=== PATIENT | male | born 1955 | race Caucasian/White ===

== ENCOUNTER 2016-12-18 11:11 | Observation (INO) | payer MEDICARE, OTHER ==
[2016-12-18] MEDS ORDERED: METOCLOPRAMIDE HCL 5 MG/ML VIAL IV ONE (11:44)
[2016-12-18] MEDS ORDERED: diphenhydrAMINE HCL 50 MG/ML VIAL IV ONE (11:44)
[2016-12-18] MEDS ORDERED: diphenhydrAMINE HCL 50 MG/ML VIAL ONE (11:51)
[2016-12-18] MEDS ORDERED: METOCLOPRAMIDE HCL 5 MG/ML VIAL ONE (11:51)
--- NOTE | 2016-12-18 11:54 | ERNOTE ---
Dyspnea - General Presenting Symptoms: shortness of breath, other - right-sided chest pain Time Seen by Provider: 12/18/16 11:14 Source: patient, family Exam Limitations: no limitations - Immun/Allergies/Home Medications Allergies/Adverse Reactions: Allergies No Known Allergies Allergy (Verified 12/18/16 11:25) Home Medications: HOME MEDICATIONS Bumetanide 2 mg PO BID 08/15/13 [Last Taken Unknown] Albuterol Sulfate [Proair Respiclick] 90 mcg IH PRN PRN 12/18/16 [Last Taken Unknown] Apixaban [Eliquis] 5 mg PO BID 12/18/16 [Last Taken Unknown] Atorvastatin Calcium 10 mg PO DAILY 12/18/16 [Last Taken Unknown] Levothyroxine Sodium [Levoxyl] 25 mcg PO DAILY 12/18/16 [Last Taken Unknown] Lisinopril [Prinivil] 10 mg PO DAILY 12/18/16 [Last Taken Unknown] Spironolactone 50 mg PO BID 12/18/16 [Last Taken Unknown] metFORMIN HCL [Fortamet] 500 mg PO BID 12/18/16 [Last Taken Unknown] - History of Present Illness Narrative: Patient presents with a variety of problems including right flank tenderness, right upper quadrant tenderness and epigastric discomfort. He states his problems of an ongoing for perhaps a month and this up and not getting better. He rates the pain and difficulty has being at least moderate in severity. He is not able to qualify exactly what the nature of the discomfort is however. 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 Frequency of episodes: Reports: occassional episodes Associated Symptoms-Dyspnea: Reports: chest pain/discomfort Prior Treatment: Reports: recently seen, treated by physician Review of Systems - Review of Systems Constitutional: Present: See HPI EYE: Present: no symptoms reported ENT: Present: no symptoms reported Respiratory: Present: no symptoms reported Cardiology: Present: chest pain Gastrointestinal/Abdominal: Present: abdominal pain Genitourinary: Present: other - right flank tenderness Musculoskeletal: Present: no symptoms reported Skin: Present: no symptoms reported Neurological: Present: no symptoms reported Endocrine: Present: no symptoms reported Hematologic/Lymphatic: Present: no symptoms reported Psych: Present: no symptoms reported - Patient's Past Medical History Patient History - Medical: Diabetes Type 2, GERD Patient History - Cardiac/Respiratory: Atrial Fibrillation, CHF, Hypertension, Hyperlipidemia, Sleep Apnea Patient History - Cancer: No Hx of Cancer Patient History - Other: None - Social History Living Situations: home Alcohol Use: none Drug Use: none Physical Exam - Physical Exam General Appearance: Present: wd/wn, alert, moderate distress, other - profound morbid obesity Head Exam: Present: normal inspection Eye Exam: Normal inspection: bilateral, PERRL: bilateral Ears, Nose, Throat: Present: normal pharynx, dry mucous membranes Neck: Present: normal inspection, nontender Respiratory: Present: no respiratory distress, normal breath sounds, no accessory muscle use, lungs clear, chest tenderness - right lateral lower Cardiovascular/Chest: Present: regular rate, rhythm, no murmur, normal peripheral pulses Gastrointestinal/Abdominal: Present: normal bowel sounds, nondistended, soft, no organomegaly, tenderness - in the epigastric region Rectal Exam: Present: deferred Back Exam: Present: normal range of motion, CVA tenderness (R) Extremity Exam: Present: normal inspection, non-tender, no edema, normal range of motion Neurological Exam: Present: alert, oriented, normal mood/affect Skin Exam: Present: normal color, warm/dry Lymphatic Exam: Present: no adenopathy ED Progress - Results and Orders Patient's Lab Results:: I have reviewed the patient's lab results. - Vital Signs Patient's Vital Signs:: I have reviewed the patient's vital signs. Vital Signs: Vital Signs 12/18/16 11:20 Temperature 36.3 C L Pulse Rate 92 Respiratory 12 Rate Blood Pressure 140/60 O2 Sat by Pulse 94 Oximetry - X-Ray X-Ray #1 X-Ray: chest Interpretation: Reviewed by me X-Ray #2 X-Ray: abdomen Interpretation: Reviewed by me - Progress/Reassessment Chief Complaint: Dyspnea Plan - Plan Plan: The patient will need to be admitted to the hospital for correction of Saturday of problems. He is profoundly hyperglycemic, and while he is not in DKA is certainly is trending toward pretty marked dehydration with his lactic acid being 5.4. I believe the lactic acidosis is more from dehydration and do not see any source for any infection present anywhere and I also suspect that this is also part and parcel with the hyponatremia as well. I suspect the patient may require 3-4 L of fluid given his profound morbid obesity. Patient will be admitted to the floor on an insulin drip. I suspect the abdominal pain was coming from a diabetic gastroparesis as the abdominal pain got better on Reglan and Benadryl. Departure Clinical Impression: Hyperglycemia, Hyponatremia, Dehydration, Lactic acid acidosis, Gastroparesis due to DM - Departure Disposition: [facility] Condition: Fair Referrals: Mayra Michelle MD [Primary Care Provider] - - Critical Care Total Time (mins): 45 Critical Care: Patient required a variety of interventions here in the emergency department, including IV fluid bolus and IV insulin. I suspect the patient is easy 3-4 L behind in fluid and we will start him on insulin drip always on the floor.
[2016-12-18 12:04] LABS: Hematocrit 44.3 % (42.0-52.0); Hemoglobin 15.4 gm/dL (13.5-18.0); Mean Cell Volume 87.7 fl (78-100); Mean Corpuscular Hemoglobin 30.5 pg (27-31); Mean Corpuscular Hgb Conc 34.8 g/dl (32-36); Mean Platelet Volume 10.6 fl (6.0-9.5); Neutrophil # 8.9 K/mm3 (1.3-6.0); Neutrophil % 74.1 % (42-75.0); Platelet Count 305 K/mm3 (150-450); Red Blood Count 5.05 M/mm3 (4.7-6.0); Red Cell Distribution Width 12.1 % (11.5-14.0)
[2016-12-18 12:16] LABS: Urine Appearance Clear; Urine Bacteria None Seen; Urine Bilirubin Negative (NEGATIVE); Urine Blood Negative /ul (NEGATIVE); Urine Color Yellow; Urine Ketone Negative (NEGATIVE); Urine Nitrite Negative (NEGATIVE); Urine Protein Negative (NEGATIVE); Urine RBC None Seen /hpf (0-5); Urine Specific Gravity <=1.005 SP.GR. (1.005-1.030); Urine Urobilinogen Normal (NORMAL); Urine WBC None Seen /hpf (0-5); Urine pH 5.5 pH (5.0-7.0)
[2016-12-18] MEDS ORDERED: NORMAL SALINE 1,000 ML IV ONE ×2 (12:24→14:32)
[2016-12-18] MEDS ORDERED: INSULIN REGULAR, HUMAN 100 UNITS/ML VIAL IV ONE (12:48)
[2016-12-18 12:49] LABS: Albumin * 3.6 gm/dl (3.4-5.0); Anion Gap 21.2 mmol/L (6.8-13.8); BUN/Creatinine Ratio 10.5 (9.0-21.6); Bilirubin, Total 0.8 mg/dL (0.0-1.1); Blood Urea Nitrogen 18 mg/dL (6-23); Ca. Corrected For Albumin 9.1 mg/dL (8.4-10.2); Calcium * 9.1 mg/dL (7.9-10.9); Carbon Dioxide 19.3 mmol/L (24-32.6); Chloride 85 mmol/L (97-106); Glucose * 741 mg/dL (70-110); Potassium 4.5 mmol/L (3.4-4.6); Sodium 121 mmol/L (132-142); Total Protein 8.5 gm/dL (6.2-8.2)
[2016-12-18 12:50] LABS: ALT 99 U/L (19-67); AST 122 U/L (0-48); Alkaline Phosphatase * 278 U/L (50-170); Lipase 204 U/L (73-393); Magnesium 2.1 mg/dL (1.2-2.8)
[2016-12-18] MEDS ORDERED: INSULIN REGULAR, HUMAN 100 UNITS/ML VIAL ONE (13:00)
[2016-12-18 14:56] LABS: Albumin * 3.3 gm/dl (3.4-5.0); Anion Gap 15.9 mmol/L (6.8-13.8); BUN/Creatinine Ratio 9.5 (9.0-21.6); Bilirubin, Total 0.8 mg/dL (0.0-1.1); Ca. Corrected For Albumin 8.8 mg/dL (8.4-10.2); Calcium * 8.6 mg/dL (7.9-10.9); Magnesium 1.9 mg/dL (1.2-2.8); Phosphorus 2.9 mg/dL (2.2-4.2); Potassium 3.9 mmol/L (3.4-4.6); Total Protein 7.7 gm/dL (6.2-8.2)
[2016-12-18] MEDS ORDERED: HEPARIN SODIUM,PORCINE 5,000 UNITS/ML VIAL SC SCH (15:00)
[2016-12-18] MEDS: INSULIN REGULAR HUMAN REC 100 UNITS in NORMAL SALINE 100 ML IV PRN ×5 (15:15→18:31)
[2016-12-18] MEDS ORDERED: NORMAL SALINE IV SCH (16:00)
[2016-12-18] MEDS ORDERED: POTASSIUM CHLORIDE IV SCH (16:00)
[2016-12-18] MEDS ORDERED: ALBUTEROL SULFATE 2.5 MG/0.5 ML VIAL.NEB IH PRN (16:26)
--- NOTE | 2016-12-18 16:30 | HP ---
Chief Complaint - Chief Complaint Date of Service: 12/18/16 Time of Service: 16:28 Chief Complaint: malaise, fatigue, elevated blood sugar, shortness of breath History of Present Illness: Keith is a 61 year old male patient of Dr. Michelle with a PMH of PAF (on eliquis), RODRIGO (requiring tracheostomy with O2 bleed in), DM T2 (non-insulin dependent), morbid obesity (BMI 52), HTN, HLD, Diastolic CHF, GERD, chronic hep C and mild AI who presented to the ER today with c/o cp, dyspnea and diffuse abdominal pain. abdominal xray c/w stool retention. chest xray showed no acute cardiopulmonary abnormalities. cbc notable for elevated wbc at 12.0. UA positive for >1000 glucose. serum ketones negative. Na+ 121, creatinine 1.72, serum glucose 741, AST 122, ALT 99, Alk Phos 278, lactic acid 5.4, troponin 0.018. Patient to be admitted for nonketotic hyperglycemia, dehydration, and hyponatremia. - Patient's Past Medical History Patient History - Medical: Anxiety, Diabetes Type 2, Depression, GERD, Liver Disease, Obesity Patient History - Cardiac/Respiratory: Atrial Fibrillation, CHF, Hypertension, Hyperlipidemia, Home O2 Use, Sleep Apnea Patient History - Cancer: No Hx of Cancer Patient History - Surgical Procedures: ENT Patient History - Other: Other - Family History Mother Family History - Medical: , Arthritis, Diabetes Type 2 Family History - Cardiac/Respiratory: CVA/Stroke Father Family History - Medical: , Arthritis, Glaucoma Family History - Cardiac/Respiratory: Coronary Heart Disease, Hypertension, Myocardial Infarction Family History - Cancer: Prostate Brother Family History - Medical: Other Sister Family History - Cancer: Breast, Melanoma Uncle Family History - Cancer: Lung - Social History Living Situations: home Abuse History: No History of abuse Psych History: Hx of Anxiety Smoking Status: Former smoker Have you smoked in the past 12 months: No Do you dip or chew tobacco: No Patient requests Smoking Cessation Consult: No Initiate information on Smoking Cessation: No Alcohol Use: sober Drug Use: none Review Of Systems (GEN) - Review of Systems Generalized/Overall Review: Present: Weakness, Malaise, Fatigue. Absent: Chills , Fever EENTM: Present: No Symptoms Reported Respiratory: Present: Shortness of Breath. Absent: Cough, Wheezing Cardiac: Present: Chest Pain. Absent: Palpitations, Syncope Abdominal: Present: Abdominal Pain. Absent: Vomiting, Hematemesis, Diarrhea Genitourinary: Present: Frequency. Absent: Burning Musculoskeletal: Present: No Symptoms Reported Neurological: Present: No Symptoms Reported Skin: Present: No Symptoms Reported Endocrine: Present: No Symptoms Reported Misc: All systems neg except as marked Allergies/Adverse Reactions: Allergies Allergy/AdvReac Type Severity Reaction Status Date / Time rivaroxaban [From Xarelto] AdvReac Severe Other Verified 12/18/16 14:33 Home Medications: HOME MEDICATIONS Bumetanide 2 mg PO BID 08/15/13 [Last Taken 12/18/16] Albuterol Sulfate [Proair Respiclick] 2 puff IH Q4H PRN 12/18/16 [Last Taken ] Apixaban [Eliquis] 5 mg PO BID 12/18/16 [Last Taken 12/18/16] Atorvastatin Calcium 10 mg PO HS 12/18/16 [Last Taken 12/17/16] Levothyroxine Sodium [Levoxyl] 25 mcg PO DAILY 12/18/16 [Last Taken 12/18/16] Lisinopril [Prinivil] 10 mg PO HS 12/18/16 [Last Taken 12/17/16] Spironolactone 50 mg PO BID 12/18/16 [Last Taken 12/18/16] metFORMIN HCL [Fortamet] 500 mg PO 1700 12/18/16 [Last Taken 12/17/16] Exam - Exam Vital Signs: Vital Signs - Last Taken Temp 37 C 12/18/16 14:48 Pulse 83 12/18/16 14:58 Resp 20 12/18/16 14:48 BP 102/50 12/18/16 14:48 Pulse Ox 98 12/18/16 14:48 Constitutional: Present: Alert, Cooperative, No distress, Morbidly obese, Looks Older than stated age ENT Exam: Present: hearing grossly normal Eye Exam: bilateral eye: normal inspection Neck: Present: supple, other - short, thick neck. trach in place. Breasts: Present: Exam deferred Respiratory: Present: normal breath sounds, no respiratory distress Cardiovascular/Chest: Present: normal peripheral pulses, irregularly irregular. Absent: tachycardia Peripheral Pulses: dorsalis-pedis (R): 2+, dorsalis-pedis (L): 2+, radial (R): 2 +, radial (L): 2+ Abdomen: Present: soft, nontender, obese /Rectal: Present: Exam deferred Extremity: Present: non-tender, no calf tenderness Skin Exam: Present: normal color, warm/dry, no cyanosis Appearance: Present: disheveled Diagnostic Studies: Abnormal Lab Results 12/18/16 12/18/16 12/18/16 Range/Units 14:27 14:27 Unknown Sodium 125 L (132-142) mmol/L Chloride 88 L (97-106) mmol/L Anion Gap 15.9 H (6.8-13.8) mmol/L Creatinine 1.79 H (0.4-1.4) mg/dL Est GFR (Non-Af Amer) 41 L (60-130) mL/min Random Glucose 557 H* (70-110) mg/dL Lactic Acid, Venous 4.3 H* (0.4-1.9) mmol/L AST 87 H (0-48) U/L ALT 89 H (19-67) U/L Alkaline Phosphatase 243 H (50-170) U/L B-Natriuretic Peptide 1060 H (5-175) pg/mL Albumin 3.3 L (3.4-5.0) gm/dl Urine Glucose (UA) >=1000 H (NEGATIVE) mg/dL Laboratory Results WBC 12.0 K/mm3 (4.0-10.5) H 12/18/16 11:55 RBC 5.05 M/mm3 (4.7-6.0) 12/18/16 11:55 Hgb 15.4 gm/dL (13.5-18.0) 12/18/16 11:55 Hct 44.3 % (42.0-52.0) 12/18/16 11:55 MCV 87.7 fl (78-100) 12/18/16 11:55 MCH 30.5 pg (27-31) 12/18/16 11:55 MCHC 34.8 g/dl (32-36) 12/18/16 11:55 RDW 12.1 % (11.5-14.0) 12/18/16 11:55 Plt Count 305 K/mm3 (150-450) 12/18/16 11:55 MPV 10.6 fl (6.0-9.5) H 12/18/16 11:55 Immature Gran % (Auto) 0.80 % (0.001-0.429) H 12/18/16 11:55 Immature Gran # (Auto) 0.10 K/mm3 (0.000-0.0310) H 12/18/16 11:55 Neutrophils % 74.1 % (42-75.0) 12/18/16 11:55 Lymphocytes % 13.1 % (20-51) L 12/18/16 11:55 Monocytes % 10.2 % (0.0-9) H 12/18/16 11:55 Eosinophils % 1.4 % (0.0-3.0) 12/18/16 11:55 Basophils % 0.4 % (0.0-1.0) 12/18/16 11:55 Nucleated RBC % 0.0 k/mm3 (0-1) 12/18/16 11:55 Neutrophils # 8.9 K/mm3 (1.3-6.0) H 12/18/16 11:55 Lymphocytes # 1.6 k/mm3 (1.5-3.5) 12/18/16 11:55 Monocytes # 1.2 k/mm3 (0.0-1.0) H 12/18/16 11:55 Eosinophils # 0.2 k/mm3 (0.0-0.7) 12/18/16 11:55 Absolute Basophils 0.1 k/mm3 (0.0-0.1) 12/18/16 11:55 Sodium 125 mmol/L (132-142) L 12/18/16 14:27 Plasma Sodium 132 mmol/L (130-142) 12/18/16 14:27 Potassium 3.9 mmol/L (3.4-4.6) 12/18/16 14:27 Chloride 88 mmol/L (97-106) L 12/18/16 14:27 Carbon Dioxide 25.0 mmol/L (24-32.6) 12/18/16 14:27 Anion Gap 15.9 mmol/L (6.8-13.8) H 12/18/16 14:27 BUN 17 mg/dL (6-23) 12/18/16 14:27 Creatinine 1.79 mg/dL (0.4-1.4) H 12/18/16 14:27 Est GFR (Non-Af Amer) 41 mL/min (60-130) L 12/18/16 14:27 BUN/Creatinine Ratio 9.5 (9.0-21.6) 12/18/16 14:27 Random Glucose 557 mg/dL (70-110) H* 12/18/16 14:27 Lactic Acid, Venous 4.3 mmol/L (0.4-1.9) H* 12/18/16 14:27 Calcium 8.6 mg/dL (7.9-10.9) 12/18/16 14:27 Calcium Adj for Albumin 8.8 mg/dL (8.4-10.2) 12/18/16 14:27 Phosphorus 2.9 mg/dL (2.2-4.2) 12/18/16 14:27 Magnesium 1.9 mg/dL (1.2-2.8) 12/18/16 14:27 Total Bilirubin 0.8 mg/dL (0.0-1.1) 12/18/16 14:27 AST 87 U/L (0-48) H 12/18/16 14:27 ALT 89 U/L (19-67) H 12/18/16 14:27 Alkaline Phosphatase 243 U/L (50-170) H 12/18/16 14:27 Troponin I 0.018 ng/ml (0.00-0.10) 12/18/16 11:55 B-Natriuretic Peptide 1060 pg/mL (5-175) H 12/18/16 14:27 Total Protein 7.7 gm/dL (6.2-8.2) 12/18/16 14:27 Albumin 3.3 gm/dl (3.4-5.0) L 12/18/16 14:27 Lipase 204 U/L (73-393) 12/18/16 11:55 Urine Color Yellow 12/18/16 Unknown Urine Appearance Clear 12/18/16 Unknown Urine pH 5.5 pH (5.0-7.0) 12/18/16 Unknown Ur Specific Pinson <=1.005 SP.GR. (1.005-1.030) 12/18/16 Unknown Urine Protein Negative mg/dL (NEGATIVE) 12/18/16 Unknown Urine Glucose (UA) >=1000 mg/dL (NEGATIVE) H 12/18/16 Unknown Urine Ketones Negative mg/dL (NEGATIVE) 12/18/16 Unknown Urine Blood Negative /ul (NEGATIVE) 12/18/16 Unknown Urine Nitrate Negative (NEGATIVE) 12/18/16 Unknown Urine Bilirubin Negative mg/dl (NEGATIVE) 12/18/16 Unknown Urine Urobilinogen Normal EU/dl (NORMAL) 12/18/16 Unknown Ur Leukocyte Esterase Negative /ul (NEGATIVE) 12/18/16 Unknown Urine RBC None seen /hpf (0-5) 12/18/16 Unknown Urine WBC None seen /hpf (0-5) 12/18/16 Unknown Ur Epithelial Cells 0-5 /hpf (0-5) 12/18/16 Unknown Urine Bacteria None seen (NONE) 12/18/16 Unknown Urine Culture Comments No culture indicated 12/18/16 Unknown Serum Ketones Negative (NEGATIVE) 12/18/16 11:55 Assessment/Plan - Narrative Narrative: Diabetic hyperglycemia without ketosis - recheck CMP stat and as needed - aggressive IV hydration - patient is at least 4 liters behind - replace electrolytes as needed - watch K+ closely - check phos, Mg - start insulin gtt at 4 units and adjust per blood sugar response - transition to lantus insulin when bicarb normalizes - keep NPO for now. - strict I&Os - daily weights lactic acid acidosis - likely due to dehydration, no source of infection found. - improving with iv fluid hydration. - recheck tonight. dehydration - aggressive iv hydration. hyponatremia - likely due to marked hyperglycemia. - should improve as blood sugar improve. - recheck labs tonight and in am. Atrial fibrillation - cont eliquis - monitor on tele - heart rate controlled. HTN - vital signs q 4 hours. chronic diastolic CHF - daily weights - strict I&Os. RODRIGO, requiring trach with chronic O2 bleed in - cont trach care, O2 while in hospital. Code status: full code VTE: hany GI proph: protnoix po. - Assessment/Plan (1) Lactic acid acidosis Problem: Acute (2) Hyponatremia Problem: Acute (3) Dehydration Problem: Acute (4) Hyperglycemia without ketosis Problem: Acute (5) Diabetes Problem: Chronic Qualifiers: Diabetes mellitus type: type 2 Diabetes mellitus complication status: with hyperglycemia Diabetes mellitus fci insulin use: without fci use Qualified Code(s): E11.65 - Type 2 diabetes mellitus with hyperglycemia (6) PAF (paroxysmal atrial fibrillation) Problem: Chronic (7) Morbid obesity Problem: Chronic (8) HTN (hypertension) Problem: Chronic Qualifiers: Hypertension type: essential hypertension Qualified Code(s): I10 - Essential (primary) hypertension (9) HLD (hyperlipidemia) Problem: Chronic Qualifiers: Hyperlipidemia type: unspecified Qualified Code(s): E78.5 - Hyperlipidemia , unspecified (10) CHF (congestive heart failure) Problem: Chronic Qualifiers: Congestive heart failure type: diastolic Congestive heart failure chronicity: chronic Qualified Code(s): I50.32 - Chronic diastolic (congestive ) heart failure (11) GERD (gastroesophageal reflux disease) Problem: Chronic Qualifiers: Esophagitis presence: esophagitis presence not specified Qualified Code(s) : K21.9 - Gastro-esophageal reflux disease without esophagitis (12) RODRIGO treated with BiPAP Problem: Chronic
[2016-12-18 17:06] LABS: Cocaine Ur Negative (NEGATIVE); Urine Barbiturate Negative (NEGATIVE); Urine Benzodiazepines Negative (NEGATIVE); Urine Opiates Negative (NEGATIVE); Urine PCP Negative (NEGATIVE); Urine THC Negative (NEGATIVE)
[2016-12-18] MEDS ORDERED: INSULIN GLARGINE,HUM.REC.ANLOG 100 UNITS/ML VIAL SC SCH (17:15)
[2016-12-18 18:56] LABS: Albumin * 2.9 gm/dl (3.4-5.0); Anion Gap 14.7 mmol/L (6.8-13.8); BUN/Creatinine Ratio 12.3 (9.0-21.6); Bilirubin, Total 0.6 mg/dL (0.0-1.1); Calcium * 8.4 mg/dL (7.9-10.9); Potassium 4.7 mmol/L (3.4-4.6); Total Protein 6.8 gm/dL (6.2-8.2)
[2016-12-18] MEDS ORDERED: NORMAL SALINE 1,000 ML IV PRN (19:07)
[2016-12-18] MEDS ORDERED: INSULIN LISPRO 100 UNITS/ML VIAL SC SCH ×2 (20:45→23:45)
[2016-12-18] MEDS: APIXABAN 2.5 MG TABLET PO SCH (20:52)
[2016-12-18] MEDS ORDERED: LISINOPRIL 10 MG TABLET PO SCH (21:00)
[2016-12-18] MEDS ORDERED: SPIRONOLACTONE 50 MG PO SCH (21:00)
[2016-12-18] MEDS: DEXTROSE 5%-NORMAL SALINE 1,000 ML IV PRN (22:40)
[2016-12-18 23:20] LABS: Albumin * 2.8 gm/dl (3.4-5.0); BUN/Creatinine Ratio 14.4 (9.0-21.6); Bilirubin, Total 0.6 mg/dL (0.0-1.1); Ca. Corrected For Albumin 9.1 mg/dL (8.4-10.2); Calcium * 8.5 mg/dL (7.9-10.9); Total Protein 6.7 gm/dL (6.2-8.2)
[2016-12-18 23:27] LABS: Anion Gap 16.1 mmol/L (6.8-13.8); Carbon Dioxide 23.9 mmol/L (24-32.6)
[2016-12-19 05:40] LABS: Hematocrit 37.3 % (42.0-52.0); Mean Cell Volume 88.8 fl (78-100); Mean Corpuscular Hgb Conc 34.9 g/dl (32-36); Mean Platelet Volume 10.3 fl (6.0-9.5); Neutrophil # 7.2 K/mm3 (1.3-6.0); Neutrophil % 66.3 % (42-75.0); Platelet Count 251 K/mm3 (150-450); Red Cell Distribution Width 12.1 % (11.5-14.0); White Blood Count 10.9 K/mm3 (4.0-10.5)
[2016-12-19 06:02] LABS: Anion Gap 11.2 mmol/L (6.8-13.8); BUN/Creatinine Ratio 14.4 (9.0-21.6); Calcium * 8.6 mg/dL (7.9-10.9); Carbon Dioxide 27.8 mmol/L (24-32.6); Estimated Creat Clear 84.5
[2016-12-19] MEDS: DEXTROSE 5%-NORMAL SALINE 1,000 ML IV PRN (06:47)
[2016-12-19] MEDS ORDERED: LEVOTHYROXINE SODIUM 25 MCG TABLET PO SCH (07:00)
[2016-12-19] MEDS: INSULIN ASPART 100 UNITS/ML VIAL SC SCH ×2 (07:35→11:56)
[2016-12-19] MEDS: APIXABAN 2.5 MG TABLET PO SCH (08:36)
[2016-12-19 10:56] VITALS: BP 102/48
--- NOTE | 2016-12-19 11:06 | DS ---
(1) Lactic acid acidosis Problem: Acute (2) Hyponatremia Problem: Acute (3) Dehydration Problem: Acute (4) Hyperglycemia without ketosis Problem: Acute (5) Diabetes Problem: Chronic Qualifiers: Diabetes mellitus type: type 2 Diabetes mellitus complication status: with hyperglycemia Diabetes mellitus detention insulin use: without detention use Qualified Code(s): E11.65 - Type 2 diabetes mellitus with hyperglycemia (6) PAF (paroxysmal atrial fibrillation) Problem: Chronic (7) Morbid obesity Problem: Chronic (8) HTN (hypertension) Problem: Chronic Qualifiers: Hypertension type: essential hypertension Qualified Code(s): I10 - Essential (primary) hypertension (9) HLD (hyperlipidemia) Problem: Chronic Qualifiers: Hyperlipidemia type: unspecified Qualified Code(s): E78.5 - Hyperlipidemia , unspecified (10) CHF (congestive heart failure) Problem: Chronic Qualifiers: Congestive heart failure type: diastolic Congestive heart failure chronicity: chronic Qualified Code(s): I50.32 - Chronic diastolic (congestive ) heart failure (11) GERD (gastroesophageal reflux disease) Problem: Chronic Qualifiers: Esophagitis presence: esophagitis presence not specified Qualified Code(s) : K21.9 - Gastro-esophageal reflux disease without esophagitis (12) RODRIGO treated with BiPAP Problem: Chronic Description of Stay: Date of admission: 12/18/16 Date of discharge: 12/19/16 Description of stay: Keith is a 61 year old male patient of Dr. Michelle with a PMH of PAF (on eliquis), RODRIGO (requiring tracheostomy with O2 bleed in), DM T2 (non-insulin dependent), morbid obesity (BMI 52), HTN, HLD, Diastolic CHF, GERD, chronic hep C and mild AI who presented to the ER today with c/o cp, dyspnea and diffuse abdominal pain. abdominal xray c/w stool retention. chest xray showed no acute cardiopulmonary abnormalities. cbc notable for elevated wbc at 12.0. UA positive for >1000 glucose. serum ketones negative. Na+ 121, creatinine 1.72, serum glucose 741, AST 122, ALT 99, Alk Phos 278, lactic acid 5.4, troponin 0.018. Patient to be admitted for nonketotic hyperglycemia, dehydration, and hyponatremia. patient was started on an iv insulin gtt and titrated. aggressive iv fluid hydration was started. metformin was discontinued. patient improved overnight. medication changes were completed, including starting amaryl 2 mg daily and lantus 20 units sq at hs. lactic acidosis improved with iv rehydration. Patient was discharged the following day on with prescription for his medication changes and extensive diabetic teaching. Procedures Performed: none Discharge Disposition: Home self care Disposition: Home self-care Condition: Undetermined Discharge Activity: Activity as tolerated Discharge Diet: Consistent carbs Referrals: Mayra Michelle MD [Primary Care Provider] - Problem Oriented Discharge Instructions to Patient/Family: Insulin Storage and Care, Insulin Treatment for Diabetes, Hyperglycemia, [id number], Type 2 Diabetes Mellitus, Adult, [id number], How and Where to Give Subcutaneous Insulin Injections, Adult, Blood Glucose Monitoring, Adult, Diabetes and Exercise, Hypoglycemia, [id number], Diabetes Mellitus and Food Additional Patient Instructions (free text): TCM at discharge please. Call Krystin @ ext:[phone] Stagger blood sugar checks throughout the day and bring results to follow up appointment. Follow up with primary care physician in [address] Michelle 01/18 at 9;30 New Medications: 1. Lantus (basaglar insulin pen) 20 units subcutaneus at bedtime. 2. Amaryl 2 mg by mouth daily (30 minutes before a meal). 3. Freestyle glucose meter with testing strips and lancets Medications to Stop: 1. Bumex 2. Lisinopril 3. Spironolactone The above medications were discontinued as your blood pressure was too low at discharge to continue these medications. 4. Metformin. Prescriptions (Any new or edited meds): Blood Sugar Diagnostic [Test Strips] 1 each SQ TID #100 strip Blood-Glucose Meter [Freestyle Precision Richar Meter] 1 each MC DAILY #1 each Glimepiride [Amaryl] 2 mg PO DAILY #30 tab Insulin Glargine,Hum.rec.anlog [Basaglar Kwikpen U-100] 20 unit SQ HS #1 insuln.pen Lancets 1 each MC TID #100 each Pen Needle, Diabetic [Insulin Pen Needle] 1 each SQ HS #30 dis.needle Complete Home Medications List: Complete Home Medication List: Albuterol Sulfate [Proair Respiclick] 2 puff IH Q4H PRN 12/18/16 Apixaban [Eliquis] 5 mg PO BID 12/18/16 Atorvastatin Calcium 10 mg PO HS 12/18/16 Levothyroxine Sodium [Levoxyl] 25 mcg PO DAILY 12/18/16 Blood Sugar Diagnostic [Test Strips] 1 each SQ TID #100 strip 12/19/16 Blood-Glucose Meter [Freestyle Precision Richar Meter] 1 each MC DAILY #1 each 09/29 Glimepiride [Amaryl] 2 mg PO DAILY #30 tab 12/19/16 Insulin Glargine,Hum.rec.anlog [Basaglar Kwikpen U-100] 20 unit SQ HS #1 insuln.pen 12/19/16 Lancets 1 each MC TID #100 each 12/19/16 Pen Needle, Diabetic [Insulin Pen Needle] 1 each SQ HS #30 dis.needle 12/19/16
== END 2016-12-19 13:30 | disposition home or self-care (01) ==
LOC: ER 11:11 → INTOOBSV 13:19 → MS 13:19
PROVIDERS: ADMIT Nurse Practitioner Critical Care Medicine; ATTEND Internal Medicine
PROC: 4A033R1 Measurement of Arterial Saturation, Peripheral, Percutaneous Approach (ICD-10-PCS; principal; 2016-12-18)
DX: E87.1 Hypo-osmolality and hyponatremia (principal); E11.65 Type 2 diabetes mellitus with hyperglycemia; E86.0 Dehydration; E87.2 Acidosis; I50.32 Chronic diastolic (congestive) heart failure; Z68.43 Body mass index [BMI] 50.0-59.9, adult; I10 Essential (primary) hypertension; E78.5 Hyperlipidemia, unspecified; E66.01 Morbid (severe) obesity due to excess calories; Z79.84 Long term (current) use of oral hypoglycemic drugs; Z79.01 Long term (current) use of anticoagulants; I48.0 Paroxysmal atrial fibrillation; K21.9 Gastro-esophageal reflux disease without esophagitis; G47.33 Obstructive sleep apnea (adult) (pediatric); B18.2 Chronic viral hepatitis C